=== PATIENT | female | born 1980 | race Two or more races ===

== ENCOUNTER 2018-09-25 13:04 | Emergency (ER) | payer MEDICAID, OTHER ==
[~2018-09-25] VITALS: Ht 165.1 cm; Wt 99.5 kg
[2018-09-25 15:54] VITALS: BP 121/70
== END 2018-09-25 17:00 | disposition home or self-care (01) ==
LOC: ED 14:56
DX: R19.7 Diarrhea, unspecified (principal); R11.2 Nausea with vomiting, unspecified; R10.32 Left lower quadrant pain; E11.9 Type 2 diabetes mellitus without complications
CPT/HCPCS: 36415; 80048; 82040; 84703; 85025; 87046; 87324; 87427; 89055; 99283

== ENCOUNTER 2019-06-28 07:06 | Outpatient (CLI) | payer OTHER | END 2019-06-28 23:59 | disposition home or self-care (01) | LOC: CFH 07:06 | PROVIDERS: ATTEND Family Medicine | DX: E11.9 Type 2 diabetes mellitus without complications (principal); E78.5 Hyperlipidemia, unspecified | CPT/HCPCS: 36415; 83036 ==

== ENCOUNTER → 2020-01-31 | Outpatient (CLI) | payer OTHER ==
[2020-01-31 16:07] LABS: FREE T4 (FREE THYROXINE) 1.07 ng/dL (0.76-1.46)
== END | disposition home or self-care (01) ==
LOC: LAB 15:22
PROVIDERS: ATTEND Obstetrics & Gynecology Gynecology
DX: N93.9 Abnormal uterine and vaginal bleeding, unspecified (principal)
CPT/HCPCS: 36415; 82397; 82670; 83001; 84439; 84443

== ENCOUNTER 2020-06-11 20:02 | Emergency (ER) | payer OTHER ==
[~2020-06-11] VITALS: Ht 165.1 cm; Wt 98.5 kg
--- NOTE | 2020-06-11 20:22 | NUR ---
cc of left arm numbness and "its really cold". pt states she recieved first covid shot janurary 14 and exerienced tingling/numbness that day and now is having onset of coldness. pt states numbness starts from injection and moves down arm and spreads throughout fingers. pt also feels like left arm is swollen. no obvious swelling or redness to left arm.
--- NOTE | 2020-06-11 20:26 | NUR ---
pt also complaining of not being able to close fist anymore. has appoitment with new pcp on june 23 but unable to tolerate pain.
[2020-06-11] MEDS ORDERED: KETOROLAC 30 MG/1 ML ONE (21:26)
[2020-06-11] MEDS ORDERED: KETOROLAC 30 MG/1 ML IM ONE (21:30)
[2020-06-11 21:51] VITALS: BP 116/86
--- NOTE | 2020-06-11 21:56 | NUR ---
Patient given discharge instructions and they have confirmed that they understand the instructions. Patient ambulatory with steady gait.
== END 2020-06-11 21:58 | disposition home or self-care (01) ==
LOC: ED 20:59
DX: M79.621 Pain in right upper arm (principal); E11.9 Type 2 diabetes mellitus without complications
CPT/HCPCS: 96372; 99283; J1885

== ENCOUNTER → 2020-07-10 | Outpatient (CLI) | payer OTHER ==
[2020-07-10 07:40] LABS: BASOPHILS % (AUTO) 1 % (0-1); EOSINOPHILS % (AUTO) 2 % (1-7); LYMPHOCYTES % (AUTO) 28 % (22-44); MEAN CORPUSCULAR HEMOGLOBIN 24.9 pg (27.0-34.8); MEAN CORPUSCULAR HGB CONC 32.9 g/dL (32.4-35.8); MEAN PLATELET VOLUME 8.2 fL (7.4-10.4); MONOCYTES % (AUTO) 5 % (2-9); NEUTROPHILS % (AUTO) 64 % (42-75); PLATELET COUNT 274 x10^3/uL (130-400); RED BLOOD COUNT 5.06 x10^6/uL (3.82-5.3); RED CELL DISTRIBUTION WIDTH 15.9 % (9.6-15.2)
[2020-07-10 07:43] LABS: MD NO
[2020-07-10 07:51] LABS: ALBUMIN 3.9 g/dL (3.4-5.0); ANION GAP 8 mmol/L (5-15); CALCIUM 8.7 mg/dL (8.5-10.1); CHLORIDE 107 mmol/L (98-107)
[2020-07-10 08:16] LABS: ALANINE AMINOTRANSFERASE 61 U/L (12-78); ALKALINE PHOSPHATASE 133 U/L (45-117); BILIRUBIN,TOTAL 0.8 mg/dL (0.2-1.0); CHOL/HDL RATIO 4.6; CHOLESTEROL, TOTAL 153 mg/dL (140-239); CREATININE 0.78 mg/dL (0.55-1.02); FREE T4 (FREE THYROXINE) 1.14 ng/dL (0.76-1.46); HDL CHOL % 22 % (28-40); HDL CHOLESTEROL (DIRECT) 33 mg/dL (40-60); LDL CHOLESTEROL,CALCULATED 90 mg/dL (54-169); LDL/HDL RATIO 2.7 (0.5-3.0); TOTAL PROTEIN 8.1 g/dL (6.4-8.2); TRIGLYCERIDES 149 mg/dL (50-200); VLDL CHOLESTEROL 30 mg/dL (0-25)
== END | disposition home or self-care (01) ==
LOC: LAB 07:13
PROVIDERS: ATTEND Family Medicine
DX: Z00.01 Encounter for general adult medical examination with abnormal findings (principal); E11.9 Type 2 diabetes mellitus without complications; G62.9 Polyneuropathy, unspecified; N92.6 Irregular menstruation, unspecified; R53.83 Other fatigue
CPT/HCPCS: 36415; 80053; 80061; 82043; 82607; 82670; 83001; 83002; 83036; 84144; 84403; 84439; 84443; 84481; 85025

== ENCOUNTER → 2020-08-08 | Outpatient (CLI) | payer OTHER | END | disposition home or self-care (01) | LOC: RAD 13:07 | PROVIDERS: ATTEND Orthopaedic Surgery | DX: M48.02 Spinal stenosis, cervical region (principal); M54.2 Cervicalgia | CPT/HCPCS: 72050 ==

== ENCOUNTER → 2020-09-05 | Outpatient (CLI) | payer OTHER ==
[~2020-09-05] MED LIST: DAPA1TAB4 PO
[2020-09-05 08:09] LABS: BASOPHILS % (AUTO) 0 % (0-1); EOSINOPHILS % (AUTO) 3 % (1-7); LYMPHOCYTES % (AUTO) 25 % (22-44); MEAN CORPUSCULAR HEMOGLOBIN 23.3 pg (27.0-34.8); MEAN CORPUSCULAR HGB CONC 32.3 g/dL (32.4-35.8); MEAN PLATELET VOLUME 7.7 fL (7.4-10.4); MONOCYTES % (AUTO) 6 % (2-9); NEUTROPHILS % (AUTO) 66 % (42-75); PLATELET COUNT 277 x10^3/uL (130-400); RED BLOOD COUNT 4.87 x10^6/uL (3.82-5.3); RED CELL DISTRIBUTION WIDTH 15.4 % (9.6-15.2)
[2020-09-05 08:18] LABS: ANION GAP 5 mmol/L (5-15); CALCIUM 8.7 mg/dL (8.5-10.1); CHLORIDE 104 mmol/L (98-107); CREATININE 0.65 mg/dL (0.55-1.02)
[2020-09-05 08:21] LABS: PROTHROMBIN TIME 10.7 Seconds (9.6-11.5)
== END | disposition home or self-care (01) ==
LOC: STAR 07:18
PROVIDERS: ATTEND Orthopaedic Surgery
DX: Z01.818 Encounter for other preprocedural examination (principal); M48.02 Spinal stenosis, cervical region; G99.2 Myelopathy in diseases classified elsewhere
CPT/HCPCS: 36415; 80048; 85025; 85610; 85730

== ENCOUNTER 2020-09-14 05:24 | Observation (INO) | payer OTHER ==
[~2020-09-14] VITALS: Ht 165.1 cm; Wt 101.1 kg
[2020-09-14] MEDS ORDERED: GENTAMICIN 80 MG/2 ML ONE (06:31)
[2020-09-14] MEDS ORDERED: EPINEPHRINE 1 MG/ML, 1ML ONE (06:31)
[2020-09-14] MEDS ORDERED: VANCOMYCIN 1,000 MG ONE (06:31)
[2020-09-14] MEDS ORDERED: BUPIVACAINE/PF 0.5% ONE (06:31)
[2020-09-14] MEDS ORDERED: CHLORHEXIDINE 15 ML UDC ONE (06:33)
[2020-09-14] MEDS ORDERED: [UNRECOGNIZED DRUG - OTHER] INJ (06:39)
[2020-09-14 06:42] VITALS: BP 113/77
[2020-09-14] MEDS ORDERED: MIDAZOLAM 1 MG/ML, 2ML ONE (06:44)
[2020-09-14] MEDS ORDERED: FENTANYL PF 100 MCG/2ML ONE ×3 (06:44→08:57)
[2020-09-14] MEDS ORDERED: PROPOFOL 50 ML ONE (06:50)
[2020-09-14 06:54] LABS: HCG UR SG > 1.045 (1.003-1.030)
[2020-09-14] MEDS ORDERED: LACTATED RINGERS 1,000 ML IV SCH (07:00)
[2020-09-14] MEDS ORDERED: CHLORHEXIDINE 15 ML UDC PO ONE (07:00)
[2020-09-14] MEDS ORDERED: PHENYLEPHRINE 10 MG/ML ONE (07:09)
[2020-09-14] MEDS ORDERED: LIDOCAINE 1%, 10ML ONE (07:09)
[2020-09-14] MEDS ORDERED: ONDANSETRON 2MG/ML, 2ML ONE (07:57)
[2020-09-14] MEDS ORDERED: NEOSTIGMINE 1 MG/ML, 10ML ONE (07:57)
[2020-09-14] MEDS ORDERED: ROCURONIUM 10MG/ML,5ML ONE (07:57)
[2020-09-14] MEDS ORDERED: PROPOFOL 10 MG/ML, 20ML ONE (07:57)
[2020-09-14] MEDS ORDERED: SUCCINYLCHOLINE 20 MG/ML, 10ML ONE (07:57)
[2020-09-14] MEDS ORDERED: CEFAZOLIN 1,000 MG ONE (07:57)
[2020-09-14] MEDS ORDERED: GLYCOPYRROLATE 0.2MG/1ML, 5ML ONE (07:57)
[2020-09-14] MEDS ORDERED: DEXAMETHASONE 4 MG/ML, 1ML ONE (07:57)
[2020-09-14] MEDS ORDERED: ONDANSETRON 2MG/ML, 2ML IVPush PRN ×2 (08:00→09:00)
[2020-09-14] MEDS ORDERED: OXYcodone 5 MG/5 ML ORAL.SOL UDC PO PRN (08:00)
[2020-09-14] MEDS ORDERED: PROMETHAZINE 25 MG/ML, 1ML IVPush PRN (08:00)
[2020-09-14] MEDS ORDERED: KETOROLAC 30 MG/1 ML IVPush PRN (08:00)
[2020-09-14] MEDS ORDERED: MEPERIDINE/PF 25MG/0.5ML IVPush PRN (08:00)
[2020-09-14] MEDS ORDERED: METHOCARBAMOL 1,000 MG in DEXTROSE 5% 100 ML IV PRN (08:00)
[2020-09-14] MEDS ORDERED: HYDROmorphone 1 MG/ML, 1ML INJ IVPush PRN (08:00)
[2020-09-14] MEDS ORDERED: HYDROcodone/APAP 7.5-325MG/15ML UDC PO PRN (08:00)
[2020-09-14] MEDS ORDERED: FENTANYL PF 100 MCG/2ML IV PRN (08:00)
[2020-09-14] MEDS ORDERED: ACETAMINOPHEN 650 MG/20.3 ML UDC ONE (08:57)
[2020-09-14] MEDS ORDERED: OXYcodone 5 MG/5 ML ORAL.SOL UDC ONE (08:58)
[2020-09-14] MEDS ORDERED: DIPHENHYDRAMINE 50 MG/ML, 1ML IVPush PRN (09:00)
[2020-09-14] MEDS: LABETALOL 5MG/ML 40ML VIAL IVPush SCH ×2 (09:00→17:00)
[2020-09-14] MEDS ORDERED: PHARMACY MAY ADJ FOR RENAL FX MC PRN (09:00)
[2020-09-14] MEDS ORDERED: LABETALOL 5MG/ML, 20ML IVPush PRN (09:00)
[2020-09-14] MEDS ORDERED: PROMETHAZINE 25 MG/ML, 1ML IM PRN (09:00)
[2020-09-14] MEDS ORDERED: SENNA/DOCUSATE TABLET PO PRN (09:00)
[2020-09-14] MEDS: CEFAZOLIN PMX 1GM/50ML 50 ML IVPB SCH ×2 (09:00→16:47)
[2020-09-14] MEDS: DEXAMETHASONE 4 MG/ML, 1ML IVPush SCH ×2 (09:30→18:13)
[2020-09-14] MEDS: ACETAMINOPHEN 500 MG TABLET PO SCH ×2 (10:00→20:30)
[2020-09-14 13:25] VITALS: BP 126/81
[2020-09-14] MEDS: NS + 20MEQ KCL 1,000 ML IV SCH ×2 (16:47→19:00)
[2020-09-14] MEDS: CYCLOBENZAPRINE 10 MG TABLET PO PRN (18:28)
[2020-09-14] MEDS: INSULIN REGULAR 100 UNITS/ML, 3ML VIAL SQ-INSULIN PRN ×2 (18:34→20:24)
[2020-09-14 19:26] VITALS: BP 117/79
[2020-09-15 00:40] VITALS: BP 126/73
[2020-09-15] MEDS: LABETALOL 5MG/ML 40ML VIAL IVPush SCH ×2 (01:00→09:00)
[2020-09-15] MEDS: DEXAMETHASONE 4 MG/ML, 1ML IVPush SCH (01:22)
[2020-09-15] MEDS: ACETAMINOPHEN 500 MG TABLET PO SCH ×2 (02:22→09:00)
[2020-09-15] MEDS: CYCLOBENZAPRINE 10 MG TABLET PO PRN ×2 (02:23→12:45)
[2020-09-15] MEDS ORDERED: CEFAZOLIN PMX 1GM/50ML 50 ML IV ONE (03:00)
[2020-09-15 04:46] VITALS: BP 100/67
[2020-09-15 05:13] LABS: BASOPHILS % (AUTO) 1 % (0-1); EOSINOPHILS % (AUTO) 0 % (1-7); LYMPHOCYTES % (AUTO) 8 % (22-44); MEAN CORPUSCULAR HEMOGLOBIN 22.6 pg (27.0-34.8); MEAN CORPUSCULAR HGB CONC 32.1 g/dL (32.4-35.8); MEAN PLATELET VOLUME 7.9 fL (7.4-10.4); MONOCYTES % (AUTO) 2 % (2-9); NEUTROPHILS % (AUTO) 89 % (42-75); PLATELET COUNT 269 x10^3/uL (130-400); RED BLOOD COUNT 4.68 x10^6/uL (3.82-5.3); RED CELL DISTRIBUTION WIDTH 15.3 % (9.6-15.2)
[2020-09-15 05:23] LABS: ANION GAP 7 mmol/L (5-15); CALCIUM 8.5 mg/dL (8.5-10.1); CHLORIDE 106 mmol/L (98-107); CREATININE 0.56 mg/dL (0.55-1.02)
[2020-09-15] MEDS ORDERED: DEXAMETHASONE 4 MG/ML, 1ML IVPush ONE (07:00)
[2020-09-15] MEDS ORDERED: HYDROcodone/APAP 5/325 TABLET PO PRN (08:00)
[2020-09-15 09:07] VITALS: BP 111/75
[2020-09-15] MEDS ORDERED: CYCL10TA2 PO (09:48)
[2020-09-15] MEDS ORDERED: HYDR-2214 PO (09:49)
[2020-09-15] MEDS ORDERED: CEPH-376 PO (09:50)
== END 2020-09-15 13:03 | disposition home or self-care (01) ==
LOC: OUT 05:24 → ORIP 08:57 → 4NE 13:21
PROVIDERS: ADMIT Orthopaedic Surgery; ATTEND Orthopaedic Surgery
DX: M48.02 Spinal stenosis, cervical region (principal); M54.12 Radiculopathy, cervical region; G99.2 Myelopathy in diseases classified elsewhere; J45.909 Unspecified asthma, uncomplicated; E11.65 Type 2 diabetes mellitus with hyperglycemia; R20.9 Unspecified disturbances of skin sensation; E66.9 Obesity, unspecified; Z79.899 Other long term (current) drug therapy
CPT/HCPCS: 22551; 22846; 36415; 72040; 80048; 81025; 82962; 85025; 86850; 86900; 95938; 95941; 96365; 96366; 96375; 96376; 97161; 97165; C1713; C1762; C1776; G0378; J0171; J0330; J0690; J1100; J1580; J1815; J2250; J2270; J2370; J2405; J2704; J2710; J3010; J3370; J3480; J3490; S0020

== ENCOUNTER → 2020-11-10 | Outpatient (CLI) | payer OTHER ==
[~2020-11-10] MED LIST changes: +CEPH-376 PO; +CYCL10TA2 PO; +HYDR-2214 PO; +[UNRECOGNIZED DRUG - OTHER] INJ
== END | disposition home or self-care (01) ==
LOC: RAD 11:52
PROVIDERS: ATTEND Physician Assistant Surgical
DX: M48.02 Spinal stenosis, cervical region (principal); M54.12 Radiculopathy, cervical region
CPT/HCPCS: 72050